=== PATIENT | female | born 1950 | race Caucasian/White ===

== ENCOUNTER 2020-01-13 01:10 | Outpatient (CLI) | payer MEDICARE, MEDICAID, SELFPAY ==
[2020-01-13 18:02] LABS: SARS-CoV-2 RNA PCR Negative
== END 2020-01-13 01:11 | disposition home or self-care (01) ==
LOC: ANHCOVIDDT 01:10
PROVIDERS: PCP Internal Medicine Infectious Disease; Visit Provider Internal Medicine Critical Care Medicine
DX: Z01.812 Encounter for preprocedural laboratory examination (principal); Z20.828 Contact with and (suspected) exposure to other viral communicable diseases
CPT/HCPCS: 87635; C9803; U0003

== ENCOUNTER 2020-01-14 02:16 | Day surgery (SDC) | payer MEDICARE, MEDICAID, SELFPAY ==
[2020-01-08 12:39] VITALS: BMI 28.0
[2020-01-14] VITALS (8 sets, daily range): BP systolic 95–131; BP diastolic 53–75; PULSE 61–96; RESP 15–34; TEMP 36–36.4; O2SAT 95–98; BMI 27.3
[2020-01-14] MEDS: LACTATED RINGERS 1,000 ML 150 ML IV CONT (11:44)
[2020-01-14 11:50] LABS: Hematocrit 42.8 % (37.0-47.0)
--- NOTE | 2020-01-14 12:08 | WPDANESEPPF ---
Anes - Initial Pre Proc Eval Procedure: Operation Date: 01/14/20 12:00 Proposed Procedures p Bronchoscopy - To Burk MD Date/Time: 01/14/20 12:08 Surgeon: To Burk MD Pre Op Diagnosis: hemoptysis Patient Data Age: 70 Gender: F Height: 5 ft 3 in Weight: 69.9 kg Last Vital Signs Temp 97.6 F 01/14/20 11:34 Pulse 87 01/14/20 11:34 Resp 18 01/14/20 11:34 BP 131/72 01/14/20 11:34 Pulse Ox 95 01/14/20 11:34 Allergies Allergy/AdvReac Type Severity Reaction Status Date / Time amitriptyline Allergy Intermediate Muscle Verified 01/14/20 11:33 Spasms latex Allergy Mild Rash Verified 01/14/20 11:33 nitrofurantoin Allergy Unknown Rash and Verified 01/14/20 11:33 Itching Penicillins Allergy Unknown Muscle Verified 01/14/20 11:33 Spasms Sulfa (Sulfonamide Allergy Unknown Gastrointestinal Verified 01/14/20 11:33 Antibiotics) Upset topiramate Allergy Unknown Nervousness Verified 01/14/20 11:33 STERIODS Allergy Mild Swelling Uncoded 01/14/20 11:33 of Lip/Tongue/Throat Home Medications Medication Instructions Recorded Confirmed Type amlodipine 10 mg tablet 10 mg PO DAILY 08/07/19 01/08/20 History aspirin 81 mg chewable tablet 81 mg PO DAILY 08/07/19 01/08/20 History duloxetine 60 mg capsule,delayed 60 mg PO DAILY 08/07/19 01/08/20 History release sprinkle ezetimibe 10 mg tablet 10 mg PO DAILY 08/07/19 01/08/20 History furosemide 20 mg tablet 20 mg PO QAM 08/07/19 01/08/20 History losartan 100 mg tablet 100 mg PO DAILY 08/07/19 01/08/20 History lovastatin 40 mg tablet 40 mg PO DAILY 08/07/19 01/08/20 History omeprazole 40 mg capsule,delayed 40 mg PO DAILY 08/07/19 01/08/20 History release tramadol 50 mg tablet 50 mg PO TID 08/07/19 01/08/20 History trazodone 100 mg tablet 200 mg PO HS 08/07/19 01/08/20 History duloxetine 30 mg PO DAILY 01/08/20 01/08/20 History magnesium citrate 100 mg PO DAILY 01/08/20 01/08/20 History potassium gluconate 600 mg PO DAILY 01/08/20 01/08/20 History zolpidem 10 mg PO HS 01/08/20 01/08/20 History Laboratory Tests 01/14/20 01/14/20 11:41 11:41 Hgb 15.0 g/dL g/dL (12.0-15.0) Hct 42.8 % % (37.0-47.0) Sodium Pending Potassium Pending Chloride Pending Carbon Dioxide Pending Anion Gap Pending BUN Pending Creatinine Pending Estim Creat Clear Calc Pending Estimated GFR Pending Glucose Pending Calcium Pending Patient hx anesthesia problems: none Family hx anesthesia problems: none PMFSH Past Medical History Medical History (Updated 01/14/20 @ 12:08 by Howard Olmos MD) Bipolar 1 disorder GERD (gastroesophageal reflux disease) Hyperlipidemia Hypertension Pulmonary nodule Social History Social History Smoking packs per day: 1 Smoking cigarettes per day: 20.0 Years smoked: 11 Smoking pack-years: 11.00 Smoking status: Current every day smoker Tobacco type: cigarettes Smoking end date: 04/17/76 Alcohol intake: never Substance use: never Substance use type: does not use Living arrangements: alone Spiritual care concerns: No Anes - Eval Final PreProcedure Day of Procedure 01/14/20 12:08 Patient weight: normal Heart: regular rate and rhythm Lungs: clear to auscultation Airway: Mallampati scale class II Neurological: alert and oriented Last oral intake: >/= 8 hours ASA classification: III Emergent: no Anesthetic plan: proceed Anesthesia type and monitoring: general (or ETT) LMA and standard monitoring Informed Consent: The patient's anesthetic plan and its attendant risks and benefits were discussed with the patient/family/POA. Questions were solicited and answers provided to the satisfaction of the patient/family/POA.
[2020-01-14 12:13] LABS: Anion Gap 9 mmol/L (8-16); Blood Urea Nitrogen 12 mg/dL (7-17); Calcium 10.1 mg/dL (8.4-10.2); Carbon Dioxide 26 mmol/L (22-30); Chloride 107 mmol/L (98-107); Estimated CRCL calculation 62 ml/min; Estimated Glomerular Filt Rate > 60; Glucose 103 mg/dL (65-105); Potassium 4.3 mmol/L (3.4-5.0); Sodium 142 mmol/L (137-145)
--- NOTE | 2020-01-14 12:19 | PM.IMHP ---
H&P: HPI History of Present Illness Date/Time: 01/14/20 12:19 Chief complaint: hemoptysis Narrative: Taylor Duong is a 70 year old female who presents with hemoptysis and weight loss. There has been no change in her history or examination since her original consultation on 01/01/20 other than she tells me that her hemoptysis has resolved. Review of Systems Review of Systems: All systems reviewed & are unremarkable except as noted in HPI and below PMFSH Past Medical History Medical History (Updated 01/14/20 @ 12:08 by Howard Olmos MD) Bipolar 1 disorder GERD (gastroesophageal reflux disease) Hyperlipidemia Hypertension Pulmonary nodule Social History Social History Smoking packs per day: 1 Smoking cigarettes per day: 20.0 Years smoked: 11 Smoking pack-years: 11.00 Smoking status: Current every day smoker Tobacco type: cigarettes Smoking end date: 04/17/76 Alcohol intake: never Substance use: never Substance use type: does not use Living arrangements: alone Spiritual care concerns: No Meds Home Medications and Allergies Home Medications Medication Instructions Recorded Confirmed Type amlodipine 10 mg tablet 10 mg PO DAILY 08/07/19 01/08/20 History aspirin 81 mg chewable tablet 81 mg PO DAILY 08/07/19 01/08/20 History duloxetine 60 mg capsule,delayed 60 mg PO DAILY 08/07/19 01/08/20 History release sprinkle ezetimibe 10 mg tablet 10 mg PO DAILY 08/07/19 01/08/20 History furosemide 20 mg tablet 20 mg PO QAM 08/07/19 01/08/20 History losartan 100 mg tablet 100 mg PO DAILY 08/07/19 01/08/20 History lovastatin 40 mg tablet 40 mg PO DAILY 08/07/19 01/08/20 History omeprazole 40 mg capsule,delayed 40 mg PO DAILY 08/07/19 01/08/20 History release tramadol 50 mg tablet 50 mg PO TID 08/07/19 01/08/20 History trazodone 100 mg tablet 200 mg PO HS 08/07/19 01/08/20 History duloxetine 30 mg PO DAILY 01/08/20 01/08/20 History magnesium citrate 100 mg PO DAILY 01/08/20 01/08/20 History potassium gluconate 600 mg PO DAILY 01/08/20 01/08/20 History zolpidem 10 mg PO HS 01/08/20 01/08/20 History Allergies Allergy/AdvReac Type Severity Reaction Status Date / Time amitriptyline Allergy Intermediate Muscle Verified 01/14/20 11:33 Spasms latex Allergy Mild Rash Verified 01/14/20 11:33 nitrofurantoin Allergy Unknown Rash and Verified 01/14/20 11:33 Itching Penicillins Allergy Unknown Muscle Verified 01/14/20 11:33 Spasms Sulfa (Sulfonamide Allergy Unknown Gastrointestinal Verified 01/14/20 11:33 Antibiotics) Upset topiramate Allergy Unknown Nervousness Verified 01/14/20 11:33 STERIODS Allergy Mild Swelling Uncoded 01/14/20 11:33 of Lip/Tongue/Throat Vital Signs Vital Signs - 24 hr 01/14/20 11:34 Temperature 36.4 C Pulse Rate 87 Respiratory Rate 18 Blood Pressure 131/72 Pulse Oximetry 95 Exam Const: General: no acute distress Eyes: General: appearance normal, both eyes and all related structures Neck: Neck: supple and no JVD Resp: Auscultation: clear to auscultation bilaterally, no crackles, no rales, no rhonchi and no wheezes Cardio: Rate: regular rate Rhythm: regular rhythm GI: GI Palp: Yes Soft to palpation Skin: General skin exam: normal color and no rashes or lesions noted Neuro: Speech: normal speech Extrem: General: normal to inspection Psych: Mental Status: mental status grossly normal H&P: Results Labs Labs: Short CBC 01/14/20 Range/Units 11:41 Hgb 15.0 (12.0-15.0) g/dL Hct 42.8 (37.0-47.0) % BMP 01/14/20 11:41 Sodium 142 Potassium 4.3 Chloride 107 Carbon Dioxide 26 BUN 12 Creatinine 0.70 Glucose 103 Calcium 10.1 Assessment and Plan Assessment and plan (1) Hemoptysis: Code(s): R04.2 - Hemoptysis Status: Acute Assessment and Plan: Diagnostic bronchscopy today Still awaiting CT chest/abd/pelvis to be scheuduled f/u in our clinic in weeks
[2020-01-14] MEDS: LIDOCAINE HCL 2% LOCAL INJ 20 ML VIAL 4 ML IRRIGATION (12:38)
--- NOTE | 2020-01-14 13:26 | SUR.PHASEII ---
IV FLUIDS DISCONTINUED.
== END 2020-01-14 13:45 | disposition home or self-care (01) ==
PROVIDERS: Anesthesiology; PCP Internal Medicine Infectious Disease; Visit Provider Internal Medicine Critical Care Medicine
PROC: 0BJ08ZZ Inspection of Tracheobronchial Tree, Via Natural or Artificial Opening Endoscopic (ICD-10-PCS; CPT 31622; principal; 2020-01-14 12:00)
DX: R04.2 Hemoptysis (principal); R63.4 Abnormal weight loss; K21.9 Gastro-esophageal reflux disease without esophagitis; E78.5 Hyperlipidemia, unspecified; I10 Essential (primary) hypertension; R91.1 Solitary pulmonary nodule; F17.210 Nicotine dependence, cigarettes, uncomplicated
CPT/HCPCS: 31622; 36415; 80048; 85014; 85018; J2704; J7040; J7120

== ENCOUNTER 2020-02-25 08:56 | Outpatient (CLI) | payer MEDICARE, MEDICAID, SELFPAY ==
--- NOTE | ~2020-02-25 | CT_ITS ---
EXAMINATION: CT chest abdomen pelvis w con EXAM DATE: 02/25/2020 09:44 INDICATION: R04.2 - Hemoptysis R04.2 Hemoptysis . TECHNIQUE: Spiral CT of the chest, abdomen and pelvis was performed following intravenous injection o f 100 mL Omnipaque 350. Axial, coronal and sagittal images were reviewed. Coronal maximum intensity pixel images of chest reviewed. The dose-length product (DLP) for this examination was 812.84 mGy-c m. The exposure was tailored according to patient size (auto mA exposure control), and iterative rec onstruction (ASIR) was used as additional dose reduction technique. There is no prior study for kerrie farah. FINDINGS: CHEST: The lungs are clear. There are no pleural or pericardial effusions. Tracheobronchial tree is patent. There is no mediastinal, hilar or axillary lymphadenopathy. There is no pneumothorax. Heart normal in size. There is mild coronary arterial calcification, arterial sclerosis. Mild t horacic dextroscoliosis. ABDOMEN PELVIS: The liver, spleen, adrenal glands and pancreas are unremarkable. There are cholecyst ectomy clips. Portal and splenic veins are patent. Kidneys enhance symmetrically. There is no hydr onephrosis. The uterus is not identified and has likely been surgically resected. The bladder is u nremarkable. There is no retroperitoneal or pelvic lymphadenopathy. There is mild scattered arteri osclerotic disease. The appendix is normal. The stomach and small bowel are unremarkable. There is mild sigmoid colonic diverticulosis. There is no adjacent inflammatory change to suggest diverticulitis. There is expecte d amount of colonic stool. No free intraperitoneal gas. There are no osteoblastic or osteolytic l esions identified. Moderate lumbar levoscoliosis. IMPRESSION: 1. No acute cardiopulmonary findings. 2. Thoracolumbar scoliosis. 3. Cholecystectomy, hysterectomy. 4. Mild sigmoid diverticulosis. Reviewed, dictated and finalized at location A. UNT SERVICES ANALYST
[2020-02-25 09:35] LABS: Estimated Glomerular Filt Rate > 60
== END 2020-02-25 08:57 | disposition home or self-care (01) ==
PROVIDERS: PCP Internal Medicine Infectious Disease; Visit Provider Internal Medicine Critical Care Medicine
DX: K92.1 Melena (principal); R04.2 Hemoptysis; R63.4 Abnormal weight loss; Z90.49 Acquired absence of other specified parts of digestive tract; K57.30 Diverticulosis of large intestine without perforation or abscess without bleeding
CPT/HCPCS: 71260; 74177; Q9967

== ENCOUNTER 2020-04-03 09:46 | Outpatient (CLI) | payer MEDICARE, MEDICAID, SELFPAY | END 2020-04-03 09:47 | disposition home or self-care (01) | PROVIDERS: PCP Internal Medicine Infectious Disease; Visit Provider Internal Medicine Critical Care Medicine | DX: R04.2 Hemoptysis (principal) | CPT/HCPCS: 94060; 94726; 94729 ==

== ENCOUNTER 2023-02-15 12:34 | Outpatient (CLI) | payer MEDICARE, MEDICAID, SELFPAY ==
--- NOTE | 2023-02-15 14:30 | NEURO_ITS ---
Impression: # Complains of pain and numbness in all extremities. History of multiple back surgeries. # Left ulnar neuropathy across the elbow. # No responses from bilateral peroneal nerves with absent F-waves. # Poor sensory responses from lower extremities. # Needle/EMG exam reveals no fibs but decreased motor unit potentials in lower extremities muscles. # Clinical correlation recommended.Findings suggestive of higher involvement that is spine level. Nerve Conduction Studies Anti Sensory Summary Table Stim Site NR Peak (ms) P-T Amp (?V) Site1 Site2 Delta-P (ms) Dist (cm) Frank (m/s) Left Median Anti Sensory (2-3nd Digit) Wrist 2.8 29.3 Wrist 2-3nd Digit 2.8 14.0 50 Wrist 3.1 23.0 Wrist 2-3nd Digit 2.8 14.0 50 Right Median Anti Sensory (2-3nd Digit) Wrist 3.0 9.0 Wrist 2-3nd Digit 3.0 14.0 47 Wrist 3.3 16.8 Wrist 2-3nd Digit 3.0 14.0 47 Left Radial Anti Sensory (Base 1st Digit) Wrist 1.9 19.8 Wrist Base 1st Digit 1.9 0.0 Right Radial Anti Sensory (Base 1st Digit) Wrist 2.0 14.5 Wrist Base 1st Digit 2.0 0.0 Left Sup Fibular Anti Sensory (Ant Lat Mall) NO RESPONSE 14 cm NR 14 cm Ant Lat Mall 16.0 Right Sup Fibular Anti Sensory (Ant Lat Mall) NO RESPONSE 14 cm NR 14 cm Ant Lat Mall 16.0 Left Sural Anti Sensory (Lat Mall) NO RESPONSE Calf NR Calf Lat Mall 16.0 Right Sural Anti Sensory (Lat Mall) Calf 3.1 19.5 Calf Lat Mall 3.1 16.0 52 Left Ulnar Anti Sensory (5th Digit) Wrist 2.5 29.0 Wrist 5th Digit 2.5 14.0 56 Right Ulnar Anti Sensory (5th Digit) Wrist 2.8 9.3 Wrist 5th Digit 2.8 14.0 50 Motor Summary Table Stim Site NR Onset (ms) O-P Amp (mV) Site1 Site2 Delta-0 (ms) Dist (cm) Frank (m/s) Left Median Motor (Abd Poll Brev) Wrist 2.8 4.4 Elbow Wrist 5.0 29.0 58 Elbow 7.8 1.6 Right Median Motor (Abd Poll Brev) Wrist 2.9 3.9 Elbow Wrist 4.7 28.0 60 Elbow 7.6 3.4 Left Peroneal Motor (Vastus Med) NO RESPONSE Ankle NR Popit Ankle 0.0 Popit NR Right Peroneal Motor (Vastus Med) NO RESPONSE Ankle NR Popit Ankle 0.0 Popit NR Left Tibial Motor (Abd Lund Brev) Ankle 4.1 3.1 Knee Ankle 8.4 41.0 49 Knee 12.5 2.4 Right Tibial Motor (Abd Lund Brev) Ankle 4.0 0.4 Knee Ankle 8.6 41.0 48 Knee 12.6 0.9 Left Ulnar Motor (Abd Dig Minimi) Wrist 2.8 3.5 A Elbow Wrist 6.8 29.0 43 A Elbow 9.6 1.3 B Elbow Wrist 3.9 23.0 59 B Elbow 6.7 2.3 Right Ulnar Motor (Abd Dig Minimi) Wrist 2.9 1.4 A Elbow Wrist 5.0 28.0 56 A Elbow 7.9 0.6 F Wave Studies NR F-Lat (ms) L-R F-Lat (ms) Left Median (Mrkrs) (Abd Poll Brev) 27.80 2.47 Right Median (Mrkrs) (Abd Poll Brev) 25.33 2.47 Left Peroneal (Mrkrs) (EDB) NO RESPONSE NR Right Peroneal (Mrkrs) (EDB) NO RESPONSE NR Left Tibial (Mrkrs) (Abd Hallucis) 52.97 0.25 Right Tibial (Mrkrs) (Abd Hallucis) 53.22 0.25 Left Ulnar (Mrkrs) (Abd Dig Min) 25.85 0.16 Right Ulnar (Mrkrs) (Abd Dig Min) 26.01 0.16 EMG Side Muscle Nerve Root Ins Act Fibs Amp Dur Recrt Comment Right 1stDorInt Ulnar C8-T1 Nml Nml Nml Nml Nml Right Ext Indicis Radial (Post Int) C7-8 Nml Nml Nml Nml Nml Right Ext
== END 2023-02-15 12:35 | disposition home or self-care (01) ==
LOC: ANHNEURO 12:39
PROVIDERS: PCP Internal Medicine Infectious Disease; Visit Provider Internal Medicine Infectious Disease
DX: G56.22 Lesion of ulnar nerve, left upper limb (principal); Z98.890 Other specified postprocedural states
CPT/HCPCS: 95886; 95913